=== PATIENT | female | born 1940 | race Caucasian/White ===

== ENCOUNTER 2019-01-26 18:12 | Inpatient (IN) | payer MEDICARE ==
--- OUTSIDE RECORDS SUMMARY | 2019-01-26 18:32 | XMS REPORT | Continuity of Care Document ---
:1940 External Reference #:[id number] Author Name Jaclyn Lopez NP Address [address] [facility] [place] [address] Care Team Providers Name Role Phone Eric Simpson Care Team Information Striper Unavailable Eric Smipson Primary Care Physician Unavailable Payers Date Identification Numbers Payment Provider Subscriber Effective: 2007 Policy Number: [id number] [place] Thelma E Thiago PayID: [id number] [address] [place] [address] Policy Number: [id number] [facility] Options Thelma Meghann Thiago PayID: [id number] [address] [place] [address] Effective: 2007 Policy Number: [id number] [place] Thelma Meghann Thiago Expires: 2018 PayID: [id number] [address] [place] [address] Problems Active Problems Provider Date Rosacea Eric Simpson M.D. 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 Onset: 04/17/2018 Mixed hyperlipidemia Eric Simpson M.D. Onset: 04/17/2018 Hyperlipidemia Eric Simpson M.D. Onset: 06/11/2017 Essential hypertension Eric Simpson M.D. Onset: 04/29/2017 Benign essential hypertension Eric Simpson M.D. Onset: 05/04/2014 Colostomy bag changed Eric Simpson M.D. Onset: 05/04/2014 Chronic obstructive lung disease Eric Simpson M.D. Onset: 05/04/2014 Family History Date Family Member(s) Observation Comments Father due to Heart Disease () Mother due to Heart Disease () Social History Type Date Description Comments Sex Unknown Marital Status Patient is Living Situation Lives with spouse Diet Diet is healthy and well balanced Tobacco Use Start: Unknown Nonsmoker Smoking Status Reviewed: 01/23/19 Nonsmoker ETOH Use Denies alcohol use Tobacco Use Start: Unknown End: Patient is a former smoker Unknown Exercise Type/Frequency Exercises sporadically Current Allergies, Adverse Reactions, Alerts Description No Known Drug Allergies Medications Active Medications SIG Qnty Indications Ordering Date Provider Lisinopril 1 by mouth every 30tabs I10 Jaclyn Irasema 01/23/2019 5mg Tablets day SABINO Lopez Metronidazole apply to 45units L71.8 Eric Simpson, 11/20/2018 0.75% Cream affected area(s) M.D. on face at bedtime Triamterene/Hydrochlor 1 by mouth every 90caps I10 Eric Simpson, 2016 othiazide day M.D. 37.5-25mg Capsules Garlic 1 po qd Unknown Capsules Cholestoff 2 po qd Unknown Capsules History Medications Zithromax 2 po qd today , 6Tabs Eric Simpson, 10/18/2008 - 250mg then 1 po qd M.D. 08/06/2009 Tablets times 4 Wrist Splint cock-up splint 1units Eric Simpson, 05/03/2008 - for wrist M.D. 10/18/2008 dx: carpal tunnel Naproxen 1 po bid for lt 40tabs Eric Simpson, 05/03/2008 - 375mg hand and wrist M.D. 10/18/2008 Tablets Medications Administered in Office Medication SIG Qnty Indications Ordering Provider Date H1N1 MDCR vaccine any route Eric Simpson M.D. 08/06/2009 Injection Immunizations CPT Code Status Date Vaccine Lot # [id number] Given 04/17/2018 High-Dose, Influenza Virus Vacccine-fluzone 65 [id number] and older 84502 Given 04/29/2017 High-Dose, Influenza Virus Vacccine-fluzone 65 [id number] and older 31404 Given 04/28/2016 High-Dose, Influenza Virus Vacccine-fluzone 65 [id number] and older 46721 Given 04/30/2015 High-Dose, Influenza Virus Vacccine-fluzone 65 [id number] and older 30611 Given 05/04/2014 High-Dose, Influenza Virus Vacccine-fluzone 65 [id number] and older Q2038 Given 04/11/2013 Split Influenza Medicare: Fluzone [id number] 62032 Given 04/19/2012 High-Dose, Influenza Virus Vacccine-fluzone 65 [id number] and older Q2038 Given 05/12/2011 Split Influenza Medicare: Fluzone [id number] 36368 Given 05/06/2010 DO Not Use Split Influenza Virus Vaccine [id number] 12983 Given 08/06/2009 DO Not Use Split Influenza Virus Vaccine [id number] 07939 Given 05/03/2008 DO Not Use Split Influenza Virus Vaccine [id number] 19004 Given 11/07/2007 Pneumococcal Immunization [id number] Vital Signs Date Vital Result Comment 01/23/2019 3:18pm BP Systolic 150 mmHg BP Diastolic 94 mmHg Heart Rate 76 /min Body Temperature 98.1 F Height 63.25 inches 5'3.25" measured 04/29/17 Weight 204.00 lb BMI (Body Mass Index) 35.8 kg/m2 11/20/2018 2:14pm BP Systolic 170 mmHg BP Diastolic 80 mmHg Heart Rate 78 /min Body Temperature 98.1 F Height 63.25 inches 5'3.25" measured 04/29/17 Weight 214.00 lb BMI (Body Mass Index) 37.6 kg/m2 04/17/2018 2:35pm BP Systolic 140 mmHg BP Diastolic 60 mmHg Heart Rate 72 /min Body Temperature 97.9 F Respiratory Rate 16 /min Height 63.25 inches 5'3.25" measured 04/29/17 Weight 226.25 lb BMI (Body Mass Index) 39.8 kg/m2 10/10/2017 9:54am BP Systolic 152 mmHg BP Diastolic 84 mmHg Heart Rate 72 /min Body Temperature 97.5 F Respiratory Rate 16 /min Height 63.25 inches 5'3.25" measured 04/29/17 Weight 226.25 lb BMI (Body Mass Index) 39.8 kg/m2 06/11/2017 11:02am BP Systolic 146 mmHg BP Diastolic 80 mmHg Heart Rate 78 /min Body Temperature 97.7 F Respiratory Rate 16 /min Height 63.25 inches 5'3.25" measured 04/29/17 Weight 231.38 lb BMI (Body Mass Index) 40.7 kg/m2 04/29/2017 1:59pm BP Systolic 177 mmHg BP Diastolic 88 mmHg Heart Rate 66 /min Body Temperature 96.8 F Respiratory Rate 16 /min Height 63.25 inches 5'3.25" measured 04/29/17 Weight 244.12 lb BMI (Body Mass Index) 42.9 kg/m2 05/04/2014 1:26pm BP Systolic 160 mmHg BP Diastolic 80 mmHg Heart Rate 76 /min Body Temperature 97.9 F Respiratory Rate 16 /min Height 63.5 inches 5'3.50" Weight 223.00 lb BMI (Body Mass Index) 38.9 kg/m2 10/18/2008 2:53pm BP Systolic 130 mmHg BP Diastolic 70 mmHg Heart Rate 88 /min Body Temperature 101.0 F Respiratory Rate 18 /min Weight 218.00 lb 05/03/2008 8:43pm BP Systolic 136 mmHg BP Diastolic 64 mmHg Heart Rate 66 /min Height 63.5 inches 5'3.50" Weight 204.00 lb BMI (Body Mass Index) 35.6 kg/m2 11/07/2007 1:31pm BP Systolic 138 mmHg BP Diastolic 72 mmHg Heart Rate 84 /min Body Temperature 97.9 F Height 63.5 inches 5'3.50" Weight 181.00 lb BMI (Body Mass Index) 31.6 kg/m2 Results Test Date Facility Test Result H/L Range Note Lipid Profile 10/10/2017 [facility]) Cholesterol 285 mg/dL High 120-200 Triglycerides 253 mg/dL High 30-200 HDL Cholesterol 51 mg/dL 30-85 LDL (Calculated) 183 CALC High 0-129 VLDL Cholesterol 51 mg/dL High 0-50 HDL Risk Factor 5.6 CALC High 0.0-4.4 CBC Electronic ([facility]) 04/29/2017 [facility] WBC 8.2 3.6-9.6 (607)- - RBC 4.50 3.90-5.70 Hemoglobin ([facility]/CMC/CTX) 13.9 g/dL 12.1 - 17.2 Hematocrit ([facility]/CMC/CTX) 41.3 % 36.1 - 50.3 Platelets 257 10^3/ul 150-400 Lymph% 20.5 % 17.0-48.0 Mixed% 5.7 Neutrophils % 73.8 Mean Corpuscular Vol 92 82.2-97.4 Mean Corpuscular Hemoglobin 30.9 27.6-33.3 Mean Corpuscular Hemo Concen 33.7 32.0-36.0 RDW 14.6 High 11.6-13.7 Mean Platelet Volume 6.4 5.5-11.0 Comprehensive Metabolic 04/29/2017 [facility]) Sodium 143 mEq/L 134-149 Prof Potassium 4.6 mEq/L 3.6-5.5 Chloride 109 mEq/L 94-112 Carbon Dioxide 28 mEq/L 21-32 Glucose 99 mg/dL 70-105 BUN 18 mg/dL 6-26 Creatinine 1.1 mg/dL 0.6-1.4 BUN/Creat Ratio 16.4 CALC 8.0-36.0 Calcium 9.4 mg/dL 8.6-10.2 Total Protein 7.8 g/dL 6.4-8.3 Albumin 4.5 g/dL 3.8-5.5 Globulin 3.3 g/dL 2.0-4.8 A/G Ratio 1.4 CALC 0.6-2.3 Alk. Phosphatase 65 U/L 30-110 Alt (SGPT) 17 U/L 7-35 Ast (Sgot) 15 U/L 5-34 Total Bilirubin 0.9 mg/dL 0.2-1.3 GFR Non- 52 ml/min/1.73m^ Low >=60 GFR >60 ml/min/1.73m^ >=60 Lipid Profile 04/29/2017 [facility](a) Cholesterol 278 mg/dL High 120-200 Triglycerides 174 mg/dL 30-200 HDL Cholesterol 54 mg/dL 30-85 LDL (Calculated) 189 CALC High 0-129 VLDL Cholesterol 35 mg/dL 0-50 HDL Risk Factor 5.1 CALC High 0.0-4.4 Comprehensive Metabolic 05/04/2014 [facility]) Sodium 138 mEq/L 134-149 Prof Potassium 4.4 mEq/L 3.6-5.5 Chloride 101 mEq/L 94-112 Carbon Dioxide 28 mEq/L 21-32 Glucose 103 mg/dL 70-105 BUN 16 mg/dL 6-26 Creatinine 1.0 mg/dL 0.6-1.4 BUN/Creat Ratio 16.0 CALC 8.0-36.0 Calcium 10.0 mg/dL 8.6-10.2 Total Protein 8.0 g/dL 6.4-8.3 Albumin 4.3 g/dL 3.8-5.5 Globulin 3.7 g/dL 2.0-4.8 A/G Ratio 1.2 CALC 0.6-2.3 Alk. Phosphatase 70 U/L 30-110 Alt (SGPT) 22 U/L 7-35 Ast (Sgot) 21 U/L 5-34 Total Bilirubin 0.8 mg/dL 0.2-1.3 CBC Electronic ([facility]) 05/04/2014 [facility] WBC 7.1 3.6-9.6 (607)- - RBC 3.99 3.90-5.70 Hemoglobin ([facility]ma/CMC/CTX) 12.8 g/dL 12.1 - 17.2 Hematocrit (Fma/CMC/CTX) 36.4 % 36.1 - 50.3 Platelets 253 10^3/ul 150-400 Lymph% 21.3 % 17.0-48.0 Mixed% 5.5 Neutrophils % 73.2 Mean Corpuscular Vol 91 82.2-97.4 Mean Corpuscular Hemoglobin 31.9 27.6-33.3 Mean Corpuscular Hemo Concen 35.0 32.0-36.0 RDW 15.3 High 11.6-13.7 Mean Platelet Volume 6.7 5.5-11.0 Encounters Type Date Location Provider Dx Diagnosis Office Visit 11/20/2018 [facility] Office Dustin Blackwood Essential ( primary) 2:00p MEmperatrizDEmperatriz hypertension E78.2 Mixed hyperlipidemia L71.8 Other rosacea Office Visit 04/17/2018 2:40p [facility] Office Eric Chan Essential ( primary) Kely Simpson hypertension E78.2 Mixed hyperlipidemia D48.5 Neoplasm of uncertain behavior of skin Z23 Encounter for immunization Office Visit 10/10/2017 10:00a [facility] Office Eric Chan Essential ( primary) Kely Simpson hypertension E78.4 Other hyperlipidemia Office Visit 06/11/2017 11:00a Main Office Dustin Blackwood ( primary) Kely hypertension E78.4 Other hyperlipidemia Office Visit 10/18/2008 2:50p Main Office Eric Simpson, 465.9 URI Upper M.D. Respiratory Infections Acute Unspec Sites 462 Pharyngitis Acute Office Visit 05/03/2008 8:10p Main Office Eric Simpson, 782.0 Skin Sensation M.D. Disturbance 354.0 Carpal Tunnel Syndrome V04.81 Need For Prophylactic Vaccination & Inoculation/Influenza Office Visit 11/07/2007 1:20p Main Office Eric Simpson, 496 COPD Airway M.D. Obstruction Chronic Not Class Elsewhere V03.82 Streptococcus Pneumoniae Vaccination Spec Other Plan of Treatment Future Appointment(s):04/23/2019 10:20 am - Eric Simpson M.D. at [facility] Avgyqq4601/23/2019 - Jaclyn Lopez, NPI10 Essential (primary) hypertensionNew Medication:Lisinopril 5 mg - 1 by mouth every dayComments: Supportive Care:- Elevate legs- Increase protein in diet- Take frequent breaks while on your feet - Compression stockings ED Precautions reviewed ssure is less than 140/80. Recommend low salt/cardiac diet and routine exercise.R60.0 Localized edemaComments:Supportive Care:- Elevate legs- Increase protein in diet - Take frequent breaks while on your feet -Compression stockings ED Precautions reviewedAllComments:Medication Management Patient Understands medications he 's taking? Yes No Are there Barriers to Adherence? Yes No Has the patient been asked about herbal supplements and therapies, andOTC meds? Yes No Care Plan1. Patient has been queried about patient's goals/preferences and functional/lifestyle goals at relevant visits. If relevant, describe: na2. Treatment goals as explained to the patient: above3. Are there barriers to meeting treatment goals? Yes No If Yes, please describe:4. Self-Management goals as described to the patient: Yes NoAs always, we strongly encourage a healthy diet and making physical activity a part of your every day life. If you have questions about how or where to start , please contact the office.
[2019-01-26 19:17] LABS: ABS Eosinophils 0.1 10^3/ul (0-0.6); ABS Lymphocytes 0.4 10^3/ul (1.0-4.8); ABS Monocytes 0.7 10^3/ul (0-0.8); ABS Neutrophils 8.6 10^3/ul (1.5-7.7); Eosinophil % 1.1 %; Hematocrit 30 % (35-47); Lymphocyte % 4.5 %; Mean Corpuscular HGB Conc 34 g/dL (31-36); Mean Corpuscular Hemoglobin 29 pg (27-31); Mean Corpuscular Volume 84 fL (80-97); Mean Platelet Volume 6.2 fL (7.4-10.4); Nucleated Red Blood Cells % 0.1; Platelet Count 358 10^3/uL (150-450); Red Blood Count 3.51 10^6 /uL (3.70-4.87); Red Cell Distribution Width 14 % (10-15); White Blood Count 9.8 10^3/uL (3.5-10.8)
[2019-01-26 19:35] LABS: Albumin 4.1 g/dL (3.2-5.2); BUN/Creatinine Ratio 6.7 (8-20); C Reactive Protein 22.43 mg/L (<8.01); Calcium 9.9 mg/dL (8.6-10.3); EGFR African American 10.8 (>60); EGFR Non-African American 8.9 (>60); Globulin 4.1 g/dL (2-4); Potassium 4.6 mmol/L (3.5-5.0); Total Bilirubin 0.9 mg/dL (0.2-1.0); Total Protein 8.2 g/dL (6.4-8.9)
[2019-01-26] MEDS ORDERED: NS 0.9% 1000 ML** 1,000 ML IV ONE (20:30)
--- NOTE | 2019-01-26 21:31 | ED ---
Abdominal Pain/Female - HPI Summary HPI Summary: This patient is a 78 year old F presenting to [facility] accompanied by her with a chief complaint of worsening ABD pain since 2 days ago. Pt states that eating does not affect the ABD pain. She went to her PCP 4 hours ago for blood work. 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 Pt had a colostomy bag placed 20 years ago and has chronic diarrhea. The pt rates the pain 5/10 in severity. Symptoms aggravated by nothing. Symptoms alleviated by nothing. Pt reports nausea, normal urination. Pt states she had a negative reaction to Lisinopril use. - History of Current Complaint Chief Complaint: EDAbdPain Stated Complaint: ABD PAIN PER PT Time Seen by Provider: 01/26/19 20:21 Hx Obtained From: Patient, Family/Weblogic Administrator - ?: No Onset/Duration: Sudden Onset, Lasting Days - 2, Still Present, Resolved Timing: Constant - 2 Severity Initially: Moderate Severity Currently: Moderate Pain Intensity: 5 Pain Scale Used: 0-10 Numeric Radiates: No Aggravating Factor(s): Nothing Alleviating Factor(s): Nothing Associated Signs and Symptoms: Positive: Nausea, Diarrhea - chronic diarrhea, Other: - positive - normal urination Allergies/Adverse Reactions: Allergies Allergy/AdvReac Type Severity Reaction Status Date / Time lisinopril Allergy See Comment Verified 01/26/19 18:24 PMH/Surg Hx/FS Hx/Imm Hx Previously Healthy: No Sensory History: Denies: Hx Glaucoma Opthamlomology History: Denies: Hx Legally Blind EENT History: Denies: Hx Deafness, Hx Auditory Problems - Surgical History Surgical History: Yes Surgery Procedure, Year, and Place: colostomy bag placement - Immunization History Immunizations Up to Date: Yes Infectious Disease History: No Infectious Disease History: Denies: Traveled Outside the [place] in Last 30 Days - Family History Known Family History: Positive: Unknown - Social History Alcohol Use: None Hx Substance Use: No Substance Use Type: Reports: None Hx Tobacco Use: No Smoking Status (MU): Never Smoked Tobacco Do You Chew or Dip Tobacco: No Have You Chewed or Dipped Tobacco in the LAST YEAR: No Have You Smoked in the Last Year: No Review of Systems Positive: Abdominal Pain, Diarrhea - chronic, Nausea Genitourinary: Other - positive - normal urination All Other Systems Reviewed And Are Negative: Yes Physical Exam - Summary Physical Exam Summary: Appearance: The patient is well-nourished in no acute distress and in no acute pain. Skin: The skin is warm and dry and skin color reflects adequate perfusion. HEENT: The head is normocephalic and atraumatic. The pupils are equal and reactive. The conjunctivae are clear and without drainage. Nares are patent and without drainage. Mouth reveals moist mucous membranes and the throat is without erythema and exudate. The external ears are intact. The ear canals are patent and without drainage. The tympanic membranes are intact. Neck: The neck is supple with full range of motion and non-tender. There are no carotid bruits. There is no neck vein distension. Respiratory: Chest is non-tender. Lungs are clear to auscultation and breath sounds are symmetrical and equal. Cardiovascular: Heart is regular rate and rhythm. There is no murmur or rub auscultated. There is no peripheral edema and pulses are symmetrical and equal. Abdomen: The abdomen is soft and tender. There are normal bowel sounds heard in all four quadrants and there is no organomegaly palpated. Musculoskeletal: There is no back tenderness noted. Extremities are non-tender with full range of motion. There is good capillary refill. There is no peripheral edema or calf tenderness elicited. Neurological: Patient is alert and oriented to person, place and time. The patient has symmetrical motor strength in all four extremities. Cranial nerves are grossly intact. Deep tendon reflexes are symmetrical and equal in all four extremities. Psychiatric: The patient has an appropriate affect and does not exhibit any anxiety or depression. Triage Information Reviewed: Yes Vital Signs On Initial Exam: Initial Vitals Temp Pulse Resp BP Pulse Ox 97.7 F 76 18 188/67 97 01/26/19 18:19 01/26/19 18:19 01/26/19 18:19 01/26/19 18:19 01/26/19 18:19 Vital Signs Reviewed: Yes Diagnostics - Vital Signs Vital Signs Temp Pulse Resp BP Pulse Ox 01/26/19 20:49 69 210/86 98 01/26/19 20:18 68 188/82 98 01/26/19 20:16 70 189/83 98 01/26/19 20:15 68 97 01/26/19 18:19 97.7 F 76 18 188/67 97 - Laboratory Lab Results: Lab Results 01/26/19 01/26/19 01/26/19 Range/Units 19:08 19:08 19:08 WBC 9.8 (3.5-10.8) 10^3/uL RBC 3.51 L (3.70-4.87) 10^6 /uL Hgb 10.0 L (12.0-16.0) g/dL Hct 30 L (35-47) % MCV 84 (80-97) fL MCH 29 (27-31) pg MCHC 34 (31-36) g/dL RDW 14 (10-15) % Plt Count 358 (150-450) 10^3/uL MPV 6.2 L (7.4-10.4) fL Neut % (Auto) 87.2 % Lymph % (Auto) 4.5 % [place] % (Auto) 6.9 % Eos % (Auto) 1.1 % Baso % (Auto) 0.3 % Absolute Neuts (auto) 8.6 H (1.5-7.7) 10^3/ul Absolute Lymphs (auto) 0.4 L (1.0-4.8) 10^3/ul Absolute Monos (auto) 0.7 (0-0.8) 10^3/ul Absolute Eos (auto) 0.1 (0-0.6) 10^3/ul Absolute Basos (auto) 0.0 (0-0.2) 10^3/ul Absolute Nucleated RBC 0.0 10^3/ul Nucleated RBC % 0.1 Sodium 119 L* (135-145) mmol/L Potassium 4.6 (3.5-5.0) mmol/L Chloride 85 L (101-111) mmol/L Carbon Dioxide 21 L (22-32) mmol/L Anion Gap 13 H (2-11) mmol/L BUN 32 H (6-24) mg/dL Creatinine 4.76 H (0.51-0.95) mg/dL Est GFR ( Amer) 10.8 (>60) Est GFR (Non-Af Amer) 8.9 (>60) BUN/Creatinine Ratio 6.7 L (8-20) Glucose 122 H (70-100) mg/dL Lactic Acid 1.2 (0.5-2.0) mmol/L Calcium 9.9 (8.6-10.3) mg/dL Total Bilirubin 0.90 (0.2-1.0) mg/dL AST 8 L (13-39) U/L ALT 9 (7-52) U/L Alkaline Phosphatase 80 (34-104) U/L C-Reactive Protein 22.43 H (<8.01) mg/L Total Protein 8.2 (6.4-8.9) g/dL Albumin 4.1 (3.2-5.2) g/dL Globulin 4.1 H (2-4) g/dL Albumin/Globulin Ratio 1.0 (1-3) Lipase 23 (11.0-82.0) U/L Result Diagrams: 01/26/19 19:08 01/26/19 19:08 Lab Statement: Any lab studies that have been ordered have been reviewed, and results considered in the medical decision making process. Abdominal Pain Fem Course/Dx - Course Course Of Treatment: Ms. Das was found to be quite hyponatremic with mild renal insufficiency. I have no old labs to compare to. She is not a very good historian. She is nontoxic in appearance and her vitals are stable. I spoke with Dr. Guadalupe who recommended admission here and he would consult. I spoke with Dr. Rodriguez who accepted the patient. - Diagnoses Provider Diagnoses: Hyponatremia, ARF (acute renal failure) - Provider Notifications Discussed Care Of Patient With: Nahum Rodriguez Time Discussed With Above Provider: 20:44 Instructed by Provider To: Other - Dr. Sharma discusses pt's case with Dr. Rodriguez , hospitalist, who tells Dr. Sharma to consult with Dr. Guadalupe. Dr. Guadalupe agrees to admit pt. - Critical Care Time Critical Care Time: 30-74 min Discharge - Sign-Out/Discharge Documenting (check all that apply): Patient Departure Patient Received Moderate/Deep Sedation with Procedure: No - Discharge Plan Condition: Stable Disposition: ADMITTED TO [facility] Referrals: Eric Simpson MD [Primary Care Provider] - - Billing Disposition and Condition Condition: STABLE Disposition: Admitted to [facility] - Attestation Statements Document Initiated by Scribe: Yes Documenting Scribe: Farzad West Provider For Whom Scribe is Documenting (Include Credential): Dr. Tommie Sharma MD Scribe Attestation: IFarzad, scribed for Dr. Tommie Sharma MD on 01/26/19 at 2155. Scribe Documentation Reviewed: Yes Provider Attestation: The documentation as recorded by the annaibe, Farzad West accurately reflects the service I personally performed and the decisions made by me, Dr. Tommie Sharma MD Status of Scribe Document: Viewed
[2019-01-26 22:54] LABS: Urine Appearance Clear; Urine Bacteria 1+ (Absent); Urine Bilirubin Negative (Negative); Urine Blood 1+ (Negative); Urine Color Straw; Urine Glucose Negative (Negative); Urine Ketones Negative (Negative); Urine Nitrite Negative (Negative); Urine Protein Negative (Negative); Urine Red Blood Cell Trace(0-2/hpf) (Absent); Urine Specific Gravity 1.004 (1.010-1.030); Urine Squamous Epithelial Cell Present (Absent); Urine Urobilinogen Negative (Negative); Urine White Blood Cell Trace(0-5/hpf) (Absent)
[2019-01-26] MEDS ORDERED: Acetaminophen TAB* 325 MG PO PRN (23:40)
[2019-01-26] MEDS ORDERED: hydrALAZINE IV* 20 MG/ML VIAL IV SLOW PU PRN (23:51)
[2019-01-26] MEDS ORDERED: Ondansetron INJ* 2 MG/ML VIAL ONE (23:52)
[2019-01-27 00:05] LABS: BUN/Creatinine Ratio 6.6 (8-20); Blood Urea Nitrogen 30 mg/dL (6-24); CO2 Carbon Dioxide 20 mmol/L (22-32); Calcium 9.3 mg/dL (8.6-10.3); Chloride 88 mmol/L (101-111); EGFR African American 11.4 (>60); EGFR Non-African American 9.4 (>60); Glucose 110 mg/dL (70-100); Potassium 3.9 mmol/L (3.5-5.0)
[2019-01-27] MEDS: Ondansetron INJ* 2 MG/ML VIAL IV PRN ×3 (00:05→15:57)
[2019-01-27 00:15] LABS: Anion Gap 11 mmol/L (2-11); Sodium 119 mmol/L (135-145)
[2019-01-27 00:20] LABS: % Iron Saturation 11 % (15-55); Iron 49 ug/dL (50-212); Total Iron Binding Capacity 441 mcg/dL (250-450); Transferrin 315 mg/dL (203-362)
[2019-01-27 00:27] LABS: Activated Partial Thrombo Time 32.8 seconds (26.0-38.0); INR 0.94 (0.82-1.09)
[2019-01-27 00:42] LABS: Ferritin 24.2 ng/mL (11-307)
[2019-01-27 00:45] LABS: Folate 9.82 ng/mL (>3.99)
[2019-01-27] MEDS ORDERED: cloNIDine 0.3 MG PATCH* 0.3 MG/24 HR 7 DAY PATCH TRANSDERM SCH (02:00)
[2019-01-27] MEDS: NS 0.9% 1000 ML** 1,000 ML IV SCH ×2 (02:06→13:25)
[2019-01-27] MEDS: Ferric Gluconate IV* 125 MG in NS 0.9% 100 ML* 100 ML IVPB SCH ×2 (02:18→10:04)
[2019-01-27] MEDS ORDERED: Ferric Gluconate IV* 125 MG in NS 0.9% 100 ML* 100 ML IVPB SCH (02:30)
--- NOTE | 2019-01-27 02:48 | HP ---
CC: Dr. Eric Simpson; Dr. González Guadalupe * ADMISSION HISTORY AND PHYSICAL: DATE OF ADMISSION: 01/26/19 PRIMARY CARE PHYSICIAN: Dr. Eric Simpson. CHIEF COMPLAINT: Abdominal pain. HISTORY OF PRESENT ILLNESS: This is a 78-year-old female with past medical history of hypertension and extensive surgical history including a hysterectomy , cholecystectomy, appendectomy and had perforated diverticulitis with intraabdominal abscess in 2007, status post laparotomy with sigmoid colectomy and end colostomy, was brought into the ER due to abdominal pain. The patient is a very vague historian, stated initially that the pain started as abdominal pain which was localized, diffuse, started today, but after further questioning , it was revealed that she had been having this for over 3 weeks, has had decreased appetite. Today, the only new symptom was she had 3 episodes of recurrent vomiting and has seen her primary care physician who ordered some labs , and on reevaluation of the labs and the patient's recurrent abdominal pain, the primary care provider Dr. Simpson suggested that the patient should go to the ER for further evaluation. We currently do not have the lab results, but the patient otherwise denies any chest pain or shortness of breath. Does state that she has not been eating well for the last month as she had decreased appetite. She has been feeling dizzy. No other sick contacts. No fever or chills. The patient was complaining of left leg swelling which she does have on and off for the last 11 years, had some imaging done 2 days ago which did not show any fracture. PAST MEDICAL HISTORY: As mentioned, high blood pressure. She was chronically on triamterene and hydrochlorothiazide, which she has been taking consistently throughout the last week, even though she was not eating that much and she has been compliant with low-salt diet and almost does not have any salt in her diet. She was given an extra medication lisinopril which caused her to have severe reaction. So this was discontinued, this was done on Saturday. PAST SURGICAL HISTORY: As mentioned hysterectomy, cholecystectomy, appendectomy , diverticulitis with perforation, and intraabdominal abscess in October 2007, status post laparotomy and sigmoid colectomy and colostomy. MEDICATIONS: Home medication: The patient currently only takes triamterene/ hydrochlorothiazide 37.5/25 mg oral daily and topical metronidazole cream. ALLERGIES: The patient is allergic to LISINOPRIL as mentioned. FAMILY HISTORY: Noncontributory at her age. SOCIAL HISTORY: The patient used to have 7-uxpc-aui-day smoking for 30 years, quit 12 years ago. Denies any other alcohol or drug use. She is retired and is full code status. REVIEW OF SYSTEMS: A 14-point review of systems did not reveal any new information other than the ones in the HPI with the exception of she does have an 11-year- history of left leg swelling. This was postoperatively after she had the colostomy done. PHYSICAL EXAMINATION GENERAL: The patient is awake, alert, and oriented. She did not appear to be in any acute respiratory distress. VITAL SIGNS: Temperature was documented as 97.7, BP 183/72, heart rate 67, saturating 98% on room air, respiratory rate 14. HEAD AND NECK: Atraumatic, normocephalic. Bilateral pupils are reactive. Oral mucosa was moist. Neck supple. No jugular venous distention. LUNGS: Clear to auscultation bilaterally. No wheezes, rhonchi, or rales. HEART: S1 and S2. Systolic murmur heard. ABDOMEN: Distended with midline hernia and colostomy in place. The patient had minimal tenderness on the right lower quadrant, but no rebound tenderness was noted. EXTREMITIES: The patient did have left pedal edema which was pitting in nature , but no tenderness or erythema. LABORATORY DATA: CBC shows normal white count. Hemoglobin and hematocrit show mild anemia with hemoglobin of 10.0, hematocrit of 30. Platelet count was within normal limits at 358. Comprehensive metabolic panel shows decreased sodium at 119, chloride noted to be decreased at 85, bicarb decreased at 21. BUN elevated at 32, creatinine elevated at 4.72. Random glucose was noted to be 122. AST and ALT were within normal limits. Albumin was noted to be 4.1. Urine was 1+ leuk esterase positive, negative for any nitrite. There was 1+ blood noted as well. IMPRESSION: This is a 78-year-old female with hypertension and extensive abdominal surgical histories and colostomy here due to vague abdominal pain, noted to have multiple lab abnormalities including anemia, hyponatremia, anion gap, metabolic acidosis, and acute kidney injury. ASSESSMENT: 1. Acute kidney injury likely secondary to dehydration and decreased p.o. intake from her abdominal pain. 2. Hyponatremia due to her low-salt diet, exacerbated by her diuretic use and decreased p.o. intake. 3. Anemia, unclear etiology, could be just nutritional deficiencies. 4. Anion gap metabolic acidosis likely due to uremic metabolic acidosis from her acute kidney injury. 5. History of hypertension with elevated BP at this point, uncontrolled elevated BP. 6. History of multiple abdominal surgeries and abdominal pain. 7. Left foot swelling. PLAN/RECOMMENDATIONS: 1. Regarding her abdominal pain, we will get a CT abdomen and pelvis, would have preferred oral or IV contrast; however, given her acute kidney injury and her nausea, we would just attempt to do a noncontrast CT at this point to rule out any obstruction. We will keep the patient n.p.o. for now and advance diet once her vomiting and abdominal pain subsides. 2. For the severe hyponatremia and acute kidney injury and other electrolyte abnormalities, we will get serum osmolality and serial sodium levels with the goal of correcting sodium at a rate of less than 0.5 mEq per hour and consult Nephrology to evaluate the patient. Dr. Guadalupe was already consulted by the ER physician who agreed to see the patient in the morning. 3. Regarding the anemia, we will get the anemia workup started with iron TIBC, stool occult. 4. We will get a venous Doppler of the left side given the intermittent swelling on the left lower extremity. 5. DVT prophylaxis: We will only perform encouraging ambulation for now as SCD is contraindicated if we suspect any DVT given the left leg swelling, and anticoagulation with heparin or Lovenox will be contraindicated in light of her anemia which is unclear if it is acute or chronic. 6. Regarding her blood pressure, as the patient will be n.p.o., we will start the patient on IV hydralazine and clonidine patch for now and consider switching over to other oral medications once her nausea resolved and she is tolerating p.o. [id number]/[facility] #: [id number] [facility] CENTERBhavin
[2019-01-27 03:31] LABS: BUN/Creatinine Ratio 6.9 (8-20); Calcium 9.6 mg/dL (8.6-10.3); EGFR African American 11.6 (>60); EGFR Non-African American 9.6 (>60); Potassium 3.6 mmol/L (3.5-5.0)
[2019-01-27 07:02] LABS: ABS Eosinophils 0.1 10^3/ul (0-0.6); ABS Lymphocytes 0.6 10^3/ul (1.0-4.8); ABS Monocytes 0.7 10^3/ul (0-0.8); ABS Neutrophils 7.7 10^3/ul (1.5-7.7); Eosinophil % 1.5 %; Hematocrit 28 % (35-47); Hemoglobin 9.4 g/dL (12.0-16.0); Lymphocyte % 6.8 %; Mean Corpuscular HGB Conc 33 g/dL (31-36); Mean Corpuscular Hemoglobin 28 pg (27-31); Mean Corpuscular Volume 85 fL (80-97); Mean Platelet Volume 6.6 fL (7.4-10.4); Platelet Count 325 10^3/uL (150-450); Red Blood Count 3.34 10^6 /uL (3.70-4.87); Red Cell Distribution Width 15 % (10-15); White Blood Count 9.2 10^3/uL (3.5-10.8)
[2019-01-27 07:20] LABS: ALT 8 U/L (7-52); AST 8 U/L (13-39); Albumin 3.5 g/dL (3.2-5.2); Alkaline Phosphatase 70 U/L (34-104); Globulin 3.5 g/dL (2-4)
[2019-01-27 07:22] LABS: BUN/Creatinine Ratio 6.9 (8-20); Calcium 9.1 mg/dL (8.6-10.3); EGFR African American 11.6 (>60); EGFR Non-African American 9.6 (>60); Potassium 3.6 mmol/L (3.5-5.0)
[2019-01-27] MEDS ORDERED: HYDROmorphone INJ1* 1 MG/ML SYRINGE IV SLOW PU PRN (15:39)
[2019-01-27 15:43] LABS: Urine Potassium Concentration 28.3 mmol/L
--- NOTE | 2019-01-27 16:45 | PN ---
Subjective Date of Service: 01/27/19 Interval History: Ms. Das is feeling better today. She still has some abdominal pain, but it is improved. No N/V. Has been able to tolerate full liquids. Denies CP, SOB. She thinks she had blood work recently through her PCP. No concerns from nursing. Family History: Unchanged from Admission Social History: Unchanged from Admission Past Medical History: Unchanged from Admission Objective Active Medications: Acetaminophen (Tylenol Tab*) 650 mg PO Q4H PRN FEVER/PAIN Clonidine HCl (Dhdblgxt-Ojq-1 0.3 Mg Patch*) 0.3 mg TRANSDERM Q7D VIKI Hydralazine HCl (Apresoline Iv*) 5 mg IV SLOW PU Q6H PRN Systolic Bp Greater Than:160 Hydromorphone HCl (Dilaudid Inj1s*) 0.5 mg IV SLOW PU Q6H PRN Pain 7-10/10 Sodium Chloride (Ns 0.9% 1000 Ml) 1,000 mls @ 100 mls/hr IV PER RATE VIKI Ferric Sodium Gluconate Complex 125 mg/ Sodium Chloride 110 mls @ 110 mls/hr IVPB DAILY@1000 VIKI Ondansetron HCl (Zofran Inj*) 4 mg IV Q4H PRN NAUSEA/VOMITING Vital Signs - 8 hr 01/27/19 01/27/19 15:45 15:57 Temperature 97.6 F Pulse Rate 63 Respiratory 20 18 Rate Blood Pressure 155/57 (mmHg) O2 Sat by Pulse 97 Oximetry Oxygen Devices in Use Now: None Appearance: Elderly female sitting in bed in NAD Eyes: No Scleral Icterus Ears/Nose/Mouth/Throat: Mucous Membranes Moist Neck: NL Appearance and Movements; NL JVP, Trachea Midline Respiratory: Symmetrical Chest Expansion and Respiratory Effort, Clear to Auscultation Cardiovascular: NL Sounds; No Murmurs; No JVD, RRR Abdominal: - - Normoactive BS, diffusely tender Extremities: No Edema Neurological: Alert and Oriented x 3 Lines/Tubes/Other Access: Clean, Dry and Intact Peripheral IV Nutrition: Taking PO's Result Diagrams: 01/27/19 05:50 01/27/19 05:50 Assess/Plan/Problems-Billing Assessment: Ms. Das is a 78 yo F with PMH of HTN and perforated diverticulitis s/p colostomy; who presented to the ED with c/o abdominal pain and was found to have GIAN and hyponatremia. - Patient Problems (1) GIAN (acute kidney injury) Code(s): N17.9 - ACUTE KIDNEY FAILURE, UNSPECIFIED Comment: - Unclear etiology - Baseline creatinine is unknown; awaiting records from PCP - Appreciate Nephrology consult; Dr. Guadalupe agrees with current management - Continue IVF (2) Hyponatremia Code(s): E87.1 - HYPO-OSMOLALITY AND HYPONATREMIA Comment: - Improving - At least in part d/t HCTZ - Continue IVF (3) Abdominal pain Code(s): R10.9 - UNSPECIFIED ABDOMINAL PAIN Comment: - Improved this morning, but worsening again this afternoon - CT unremarkable - Start hydromorphone (4) Anemia Code(s): D64.9 - ANEMIA, UNSPECIFIED Comment: - Iron deficiency, but question if there is also a component of chronic disease if there is undiagnosed CKD - Continue ferric gluconate (5) Hypertension Code(s): I10 - ESSENTIAL (PRIMARY) HYPERTENSION Comment: - Slightly hypertensive - Start amlodipine; d/c clonidine patch as she is tolerating PO (6) Colostomy present Code(s): Z93.3 - COLOSTOMY STATUS Comment: - Adequate output (7) DVT prophylaxis Code(s): Z29.9 - ENCOUNTER FOR PROPHYLACTIC MEASURES, UNSPECIFIED Comment: - SCDs (8) Full code status Code(s): Z78.9 - OTHER SPECIFIED HEALTH STATUS Comment: Status and Disposition: Inpatient. Anticipate d/c home when medically stable. Attending: Kathia Gonsalez
[2019-01-27 17:14] LABS: Urine Creatinine Concentration 96.99 mg/dL
[2019-01-28] MEDS: NS 0.9% 1000 ML** 1,000 ML IV SCH (01:02)
[2019-01-28 08:26] LABS: ABS Eosinophils 0.1 10^3/ul (0-0.6); ABS Lymphocytes 0.5 10^3/ul (1.0-4.8); ABS Monocytes 0.8 10^3/ul (0-0.8); Eosinophil % 1.5 %; Hematocrit 28 % (35-47); Hemoglobin 9.3 g/dL (12.0-16.0); Lymphocyte % 5.7 %; Mean Corpuscular HGB Conc 34 g/dL (31-36); Mean Corpuscular Hemoglobin 29 pg (27-31); Mean Corpuscular Volume 86 fL (80-97); Mean Platelet Volume 6.3 fL (7.4-10.4); Platelet Count 297 10^3/uL (150-450); Red Cell Distribution Width 15 % (10-15); White Blood Count 9.6 10^3/uL (3.5-10.8)
[2019-01-28 08:45] LABS: BUN/Creatinine Ratio 6.9 (8-20); Calcium 8.8 mg/dL (8.6-10.3); EGFR African American 10.7 (>60); EGFR Non-African American 8.9 (>60); Potassium 3.3 mmol/L (3.5-5.0)
[2019-01-28] MEDS: amLODIPine TAB* 5 MG PO SCH (09:09)
--- NOTE | 2019-01-28 09:35 | CONS ---
NEPHROLOGY CONSULTATION: DATE OF CONSULT: I saw Ms. Das on 01/27/19. HISTORY OF PRESENT ILLNESS: Ms. Das is a 78-year-old female with history of hypertension. She also has a history of an abdominal abscess in 2007 and is status post laparotomy with a sigmoid colectomy and colostomy. She is very groggy and therefore, most of the history was taken from the and the medical record. She apparently has been having a decrease in her appetite over the past 2 to 3 weeks. She has not been taking much in the way of food or fluids. Her ostomy output has not changed. She has had no significant change in her urine output either. She has been having some mid epigastric abdominal pain, which she does not characterize well. She was seen by her primary care doctor, Dr. Simpson. Some laboratory evaluation was performed and it revealed that she had an acute renal injury and she was referred to the emergency room. PAST MEDICAL HISTORY: Her previous medical history is significant for hypertension and she has been on triamterene/hydrochlorothiazide for a number of years. Apparently, there was a trial of lisinopril, which caused a severe reaction and was recently discontinued. She is status post a hysterectomy, colectomy, and an appendectomy. She has a history of diverticulitis with perforation. She is status post a laparotomy with sigmoid colectomy and colostomy. SOCIAL HISTORY: She quit smoking 12 years ago. She does not use any alcohol. REVIEW OF SYSTEMS: It was difficult to collect a review of systems. There have been no visual disturbances. She has had a problem with swallowing recently. She says that her mouth does not hurt but she just cannot swallow. PHYSICAL EXAM: She is a groggy but responsive white female. She denies discomfort at this time. Her blood pressure is 156/66 with pulse of 56, respirations were 18. She is afebrile. She had positive skin tenting. There were dry mucous membranes. I could not see her neck veins. The chest was clear. The heart revealed a regular rhythm without murmurs. The abdomen was soft. She was tender to the mid epigastrium without rebound. Bowel sounds were positive. Bones, joints, extremities revealed no cyanosis or clubbing. There was trace edema. DIAGNOSTIC STUDIES/LAB DATA: Review of her laboratory studies reveals a white count of 9.2, hemoglobin of 9.4, hematocrit of 28,000. Sodium 122, potassium 3.6, chloride 90, total CO2 of 19, BUN 31, creatinine 4.47. She has evidence of iron deficiency with an iron saturation of 11%, although her ferritin is in the normal range at 24. Her urinalysis revealed a specific gravity of 1.004 with 1+ blood, 1+ leukocyte esterase with 1+ bacteria. There are only a trace of wbc's seen. IMPRESSION AND PLAN: 1. Acute renal injury. This is probably on a multifactorial basis. She has been taking some ibuprofen in the recent past. In addition, she appears to be somewhat dehydrated and she has had decreased fluid intake at the same time that she has been taking her diuretic medications and had no change in her ostomy output. 2. Hyponatremia, which is on essentially the same basis. At the present time, I would continue somewhat vigorous fluid resuscitation. I think the abdominal pain should be independently investigated and I would recommend a CT scan of the abdomen with oral contrast only. I did discuss the case at length with Sharri Mccoy. [id number]/[facility] #: [id number] ZULY
[2019-01-28] MEDS: Ferric Gluconate IV* 125 MG in NS 0.9% 100 ML* 100 ML IVPB SCH (10:48)
[2019-01-28] MEDS ORDERED: Lactated Ringers 1000 ML Bag* 1,000 ML IV SCH (12:00)
[2019-01-28] MEDS: KCL 20 MEQ/100 ML IVPREMIX* 20 MEQ/100 ML BAG IV SCH ×2 (14:42→17:05)
[2019-01-28 15:57] LABS: BUN/Creatinine Ratio 7.1 (8-20); EGFR Non-African American 9.1 (>60); Potassium 3.8 mmol/L (3.5-5.0)
--- NOTE | 2019-01-28 16:33 | PN ---
Subjective Date of Service: 01/28/19 Interval History: Patient's abdominal pain has improved greatly and she now has an appetite. Patient denies F/C, N/V, abdominal pain, diarrhea, CP, SOB, or other pain. Patient voices frustration with her diet and prolonged hospital stay. Family History: Unchanged from Admission Social History: Unchanged from Admission Past Medical History: Unchanged from Admission Objective Active Medications: Acetaminophen (Tylenol Tab*) 650 mg PO Q4H PRN PRN Reason: FEVER/PAIN Last Admin: 01/27/19 00:53 Dose: 650 mg Amlodipine Besylate (Norvasc Tab*) 5 mg PO DAILY [facility] Last Admin: 01/28/19 09:09 Dose: 5 mg Hydralazine HCl (Apresoline Iv*) 5 mg IV SLOW PU Q6H PRN PRN Reason: Systolic Bp Greater Than:160 Hydromorphone HCl (Dilaudid Inj1s*) 0.5 mg IV SLOW PU Q6H PRN PRN Reason: Pain 7-04/16 Last Admin: 01/27/19 15:57 Dose: 0.5 mg Ferric Sodium Gluconate Complex 125 mg/ Sodium Chloride 110 mls @ 110 mls/hr IVPB DAILY@1000 [facility] Stop: 01/29/19 10:59 Last Admin: 01/28/19 10:48 Dose: 110 mls/hr Lactated Ringer's (Lactated Ringers 1000 Ml Bag*) 1,000 mls @ 100 mls/hr IV PER RATE [facility] Last Admin: 01/28/19 14:43 Dose: 100 mls/hr Ondansetron HCl (Zofran Inj*) 4 mg IV Q4H PRN PRN Reason: NAUSEA/VOMITING Last Admin: 01/27/19 15:57 Dose: 4 mg Sodium Bicarbonate (Sodium Bicarbonate (Antacid)*) 650 mg PO AC [facility] Vital Signs - 8 hr 01/28/19 10:54 Temperature 97.5 F Pulse Rate 53 Respiratory 20 Rate Blood Pressure 125/88 (mmHg) O2 Sat by Pulse 99 Oximetry Oxygen Devices in Use Now: None Appearance: Patient is a 78yo female who appears stated age and is sitting in the bed in [facility]. Eyes: No Scleral Icterus, PERRLA Ears/Nose/Mouth/Throat: NL Teeth, Lips, Gums, Clear Oropharnyx, Mucous Membranes Moist Neck: NL Appearance and Movements; NL JVP, Trachea Midline Respiratory: Symmetrical Chest Expansion and Respiratory Effort, Clear to Auscultation Cardiovascular: NL Sounds; No Murmurs; No JVD, RRR, - - Trace B/L LE edema. Abdominal: NL Sounds; No Tenderness; No Distention, No Hepatosplenomegaly Lymphatic: No Cervical Adenopathy Extremities: No Clubbing, Cyanosis Skin: No Rash or Ulcers, No Nodules or Sclerosis Neurological: Alert and Oriented x 3, NL Sensation, NL Muscle Strength and Tone , - - CN II-XII intact. Result Diagrams: 01/28/19 07:51 01/28/19 15:29 Additional Lab and Data: Lab Results Microbiology and Other Data: Microbiology 01/26/19 22:41 Urine Culture - Final Urine Assess/Plan/Problems-Billing Assessment: Ms. Das is a 78 yo F with PMH of HTN and perforated diverticulitis s/p colostomy; who presented to the ED with c/o abdominal pain and was found to have GIAN and hyponatremia. Hyponatremia is improving, but Renal function is not improving. - Patient Problems (1) GIAN (acute kidney injury) Current Visit: Yes Status: Acute Code(s): N17.9 - ACUTE KIDNEY FAILURE, UNSPECIFIED SNOMED Code(s): 14068595 Comment: - Unclear etiology - Baseline creatinine is unknown, no history of CKD that has been mentioned. - Appreciate Nephrology consult; Dr. Guadalupe agrees with current management - Continue IVF and buffer - FeNa is prerenal, but this was on Diuretics and may not be particularly relevent. (2) Hyponatremia Current Visit: Yes Status: Acute Code(s): E87.1 - HYPO-OSMOLALITY AND HYPONATREMIA SNOMED Code(s): 97380936 Comment: - Improving - At least in part due to HCTZ and insensible losses from colostomy. - Continue IVF, goal of improvement of 8 in sodium daily. (3) Abdominal pain Current Visit: Yes Status: Acute Code(s): R10.9 - UNSPECIFIED ABDOMINAL PAIN SNOMED Code(s): 16137221 Comment: - Resolved - CT unremarkable - Tolerating Renal diet (4) Anemia Current Visit: Yes Status: Acute Code(s): D64.9 - ANEMIA, UNSPECIFIED SNOMED Code(s): 566149302 Comment: - Iron deficiency, but question if there is also a component of chronic disease if there is undiagnosed CKD - Continue IV iron. (5) Colostomy present Current Visit: Yes Status: Acute Code(s): Z93.3 - COLOSTOMY STATUS SNOMED Code(s): 146058464 Comment: - Adequate output - Likely Contributing to insensible fluid losses. (6) DVT prophylaxis Current Visit: Yes Status: Acute Code(s): Z29.9 - ENCOUNTER FOR PROPHYLACTIC MEASURES, UNSPECIFIED SNOMED Code(s): 398878982 Comment: - SCDs (7) Hypertension Current Visit: Yes Status: Acute Code(s): I10 - ESSENTIAL (PRIMARY) HYPERTENSION SNOMED Code(s): 34235996 Comment: - Normotensive on Amlodipine. (8) Full code status Current Visit: Yes Status: Acute Code(s): Z78.9 - OTHER SPECIFIED HEALTH STATUS SNOMED Code(s): 153233670 Comment: Status and Disposition: Inpatient. Anticipate d/c home when medically stable.
[2019-01-28] MEDS: Sodium Bicarbonate (ANTACID)* 650 MG TAB PO SCH (17:05)
[2019-01-28] MEDS: Lactated Ringers 1000 ML Bag* 1,000 ML IV SCH (22:03)
[2019-01-29] MEDS: Lactated Ringers 1000 ML Bag* 1,000 ML IV SCH ×3 (01:54→19:36)
[2019-01-29 06:25] LABS: ABS Basophils 0.1 10^3/ul (0-0.2); ABS Eosinophils 0.2 10^3/ul (0-0.6); ABS Lymphocytes 0.7 10^3/ul (1.0-4.8); ABS Monocytes 0.9 10^3/ul (0-0.8); ABS Neutrophils 5.6 10^3/ul (1.5-7.7); Eosinophil % 3.2 %; Hematocrit 25 % (35-47); Hemoglobin 8.3 g/dL (12.0-16.0); Lymphocyte % 9.2 %; Mean Corpuscular HGB Conc 33 g/dL (31-36); Mean Corpuscular Hemoglobin 28 pg (27-31); Mean Corpuscular Volume 86 fL (80-97); Platelet Count 262 10^3/uL (150-450); Red Blood Count 2.93 10^6 /uL (3.70-4.87); Red Cell Distribution Width 15 % (10-15); White Blood Count 7.6 10^3/uL (3.5-10.8)
[2019-01-29 06:42] LABS: BUN/Creatinine Ratio 7.8 (8-20); EGFR African American 11.2 (>60); EGFR Non-African American 9.2 (>60); Potassium 3.9 mmol/L (3.5-5.0)
[2019-01-29] MEDS: Sodium Bicarbonate (ANTACID)* 650 MG TAB PO SCH ×3 (07:25→16:26)
[2019-01-29] MEDS: Ferric Gluconate IV* 125 MG in NS 0.9% 100 ML* 100 ML IVPB SCH (09:57)
[2019-01-29] MEDS: amLODIPine TAB* 5 MG PO SCH (09:57)
--- NOTE | 2019-01-29 14:30 | PN ---
Subjective Date of Service: 01/29/19 Interval History: Patient continues to feel well. Patient denies CP, SOB, F/C, N/V, abdominal pain , increase in ostomy output, dizziness, oliguria, or other pain. Family History: Unchanged from Admission Social History: Unchanged from Admission Past Medical History: Unchanged from Admission Objective Active Medications: Acetaminophen (Tylenol Tab*) 650 mg PO Q4H PRN PRN Reason: FEVER/PAIN Last Admin: 01/27/19 00:53 Dose: 650 mg Amlodipine Besylate (Norvasc Tab*) 5 mg PO DAILY [facility] Last Admin: 01/29/19 09:57 Dose: 5 mg Hydralazine HCl (Apresoline Iv*) 5 mg IV SLOW PU Q6H PRN PRN Reason: Systolic Bp Greater Than:160 Hydromorphone HCl (Dilaudid Inj1s*) 0.5 mg IV SLOW PU Q6H PRN PRN Reason: Pain 7-10 Last Admin: 01/27/19 15:57 Dose: 0.5 mg Lactated Ringer's (Lactated Ringers 1000 Ml Bag*) 1,000 mls @ 50 mls/hr IV PER RATE [facility] Last Admin: 01/29/19 07:25 Dose: 50 mls/hr Ondansetron HCl (Zofran Inj*) 4 mg IV Q4H PRN PRN Reason: NAUSEA/VOMITING Last Admin: 01/27/19 15:57 Dose: 4 mg Sodium Bicarbonate (Sodium Bicarbonate (Antacid)*) 650 mg PO AC [facility] Last Admin: 01/29/19 11:26 Dose: 650 mg Vital Signs - 8 hr 01/29/19 01/29/19 01/29/19 07:15 07:47 11:15 Temperature 97.6 F 97.5 F Pulse Rate 58 66 Respiratory 16 16 17 Rate Blood Pressure 141/56 152/59 (mmHg) O2 Sat by Pulse 100 98 Oximetry Oxygen Devices in Use Now: None Appearance: Patient is a 78yo female who appears stated age and is sitting in the bed in NAD. Eyes: No Scleral Icterus, PERRLA Ears/Nose/Mouth/Throat: NL Teeth, Lips, Gums, Clear Oropharnyx, Mucous Membranes Moist Neck: NL Appearance and Movements; NL JVP, Trachea Midline Respiratory: Symmetrical Chest Expansion and Respiratory Effort, Clear to Auscultation Cardiovascular: NL Sounds; No Murmurs; No JVD, RRR, No Edema Abdominal: NL Sounds; No Tenderness; No Distention, No Hepatosplenomegaly Lymphatic: No Cervical Adenopathy Extremities: No Edema, No Clubbing, Cyanosis Skin: No Rash or Ulcers, No Nodules or Sclerosis Neurological: Alert and Oriented x 3, NL Sensation, NL Muscle Strength and Tone , - - CN II-XII intact. Result Diagrams: 01/29/19 06:12 01/29/19 06:12 Additional Lab and Data: Lab Results Microbiology and Other Data: Microbiology 01/26/19 22:41 Urine Culture - Final Urine Assess/Plan/Problems-Billing Assessment: Ms. Das is a 78 yo F with PMH of HTN and perforated diverticulitis s/p colostomy; who presented to the ED with c/o abdominal pain and was found to have GIAN and hyponatremia. Hyponatremia is improving, but Renal function is not improving. - Patient Problems (1) GIAN (acute kidney injury) Current Visit: Yes Status: Acute Code(s): N17.9 - ACUTE KIDNEY FAILURE, UNSPECIFIED SNOMED Code(s): 56238506 Comment: - Unclear etiology - Baseline creatinine is unknown, no history of CKD that has been mentioned. - Appreciate Nephrology consult; Dr. Guadalupe agrees with current management - Continue IVF with tapering and buffer - FeNa is prerenal, but this was on Diuretics and may not be particularly relevent. - No indication for dialysis at this time. - Likely due to ATN, hopeful for improvement at this time. (2) Hyponatremia Current Visit: Yes Status: Acute Code(s): E87.1 - HYPO-OSMOLALITY AND HYPONATREMIA SNOMED Code(s): 89615202 Comment: - Improving - At least in part due to HCTZ and insensible losses from colostomy. - Continue IVF, goal of improvement of 8 in sodium daily. (3) Abdominal pain Current Visit: Yes Status: Acute Code(s): R10.9 - UNSPECIFIED ABDOMINAL PAIN SNOMED Code(s): 35079744 Comment: - Resolved - CT unremarkable - Tolerating Renal diet (4) Anemia Current Visit: Yes Status: Acute Code(s): D64.9 - ANEMIA, UNSPECIFIED SNOMED Code(s): 169106863 Comment: - Iron deficiency, but question if there is also a component of chronic disease if there is undiagnosed CKD - Check Epo Level - Finished IV iron 1g - Positive Stool occult blood - Discussed with GI, will need outpatient endoscopy/colonoscopy, but no urgency at this time - Has never had previous screening colonoscopy. (5) Colostomy present Current Visit: Yes Status: Acute Code(s): Z93.3 - COLOSTOMY STATUS SNOMED Code(s): 924016859 Comment: - Adequate output - Likely Contributing to insensible fluid losses. (6) Hypertension Current Visit: Yes Status: Acute Code(s): I10 - ESSENTIAL (PRIMARY) HYPERTENSION SNOMED Code(s): 91529163 Comment: - Normotensive on Amlodipine. (7) DVT prophylaxis Current Visit: Yes Status: Acute Code(s): Z29.9 - ENCOUNTER FOR PROPHYLACTIC MEASURES, UNSPECIFIED SNOMED Code(s): 112063318 Comment: - SCDs due to positive FOBT (8) Full code status Current Visit: Yes Status: Acute Code(s): Z78.9 - OTHER SPECIFIED HEALTH STATUS SNOMED Code(s): 820608177 Comment: Status and Disposition: Inpatient. Anticipate d/c home when medically stable.
[2019-01-30] MEDS: Sodium Bicarbonate (ANTACID)* 650 MG TAB PO SCH ×2 (07:50→10:45)
[2019-01-30] MEDS: amLODIPine TAB* 5 MG PO SCH (07:50)
[2019-01-30 09:45] LABS: ABS Basophils 0.1 10^3/ul (0-0.2); ABS Eosinophils 0.3 10^3/ul (0-0.6); ABS Lymphocytes 0.9 10^3/ul (1.0-4.8); ABS Monocytes 0.6 10^3/ul (0-0.8); ABS Neutrophils 6.4 10^3/ul (1.5-7.7); Eosinophil % 3.2 %; Hematocrit 27 % (35-47); Hemoglobin 9.1 g/dL (12.0-16.0); Lymphocyte % 10.9 %; Mean Corpuscular HGB Conc 33 g/dL (31-36); Mean Corpuscular Hemoglobin 29 pg (27-31); Mean Corpuscular Volume 85 fL (80-97); Mean Platelet Volume 6.4 fL (7.4-10.4); Nucleated Red Blood Cells % 0.1; Platelet Count 321 10^3/uL (150-450); Red Blood Count 3.19 10^6 /uL (3.70-4.87); Red Cell Distribution Width 15 % (10-15); White Blood Count 8.3 10^3/uL (3.5-10.8)
[2019-01-30 10:07] LABS: BUN/Creatinine Ratio 8.2 (8-20); Calcium 9.4 mg/dL (8.6-10.3); EGFR African American 12.7 (>60); EGFR Non-African American 10.5 (>60); Potassium 4.3 mmol/L (3.5-5.0)
[2019-01-30 12:10] VITALS: BP 158/67
--- NOTE | 2019-01-30 23:08 | DS ---
CC: Dr. Eric Simpson * DISCHARGE SUMMARY: DATE OF ADMISSION: 01/27/19 DATE OF DISCHARGE: 01/30/19 PRIMARY CARE PROVIDER: Dr. Eric Simpson. MY ATTENDING WHILE IN THE HOSPITAL: Dr. Kathia Gonsalez.* (DICTATED BY ROLA RUBI) PRIMARY DISCHARGE DIAGNOSES: 1. Acute renal failure likely due to dehydration. 2. Acute tubular necrosis. 3. Severe hyponatremia, resolved. 4. Iron-deficiency anemia. 5. Positive stool occult blood. SECONDARY DISCHARGE DIAGNOSES: 1. History of complicated diverticulitis with perforation and colostomy. 2. High blood pressure. 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 No additional findings correlate with the patient's symptomatology. Venous Doppler study on 01/27/19 read as no evidence for deep vein thrombosis. MEDICATIONS AT DISCHARGE: 1. Metrocream ointment application topical daily. 2. Tylenol 650 mg q.4 hours as needed. 3. Amlodipine 10 mg p.o. daily. 4. Ferrous sulfate 325 mg p.o. daily. 5. Sodium bicarbonate 350 mg p.o. with meals. New medications at discharge: 1. Tylenol. 2. Amlodipine. 3. Ferrous sulfate. 4. Sodium bicarbonate. Medications discontinued at discharge: Triamterene/hydrochlorothiazide. HOSPITAL COURSE: This is a brief summary of the patient's presentation. For more details, please see history and physical from Nahum Rodriguez MD on 01/27/19. In brief, the patient is a 78-year-old female with past medical history significant for the above, who presented to the emergency department after 3 weeks of worsening abdominal pain, decreased appetite with vomiting without blood and poor oral intake with dizziness and leg swelling, which has been a chronic problem for her on and off. The patient was seen by her primary care provider several times. During this time, the patient at one point was prescribed lisinopril, which was stopped and the patient did not have increased output from her colostomy or any blood in her colostomy. The patient does not have any mention of renal failure in her history per her report. The patient in the emergency department had a CT read as above with no cause for her nausea and vomiting. The patient did have lab work showing a sodium level of 119 and creatinine of 4.76. The patient was admitted, started on normal saline. The patient was found to be anemic and was given 1 g of IV iron. The patient was seen in consultation by Dr. González Guadalupe of Nephrology, who recommended fluids and believes this was due to dehydration and acute tubular necrosis from her diuretic use and poor oral intake. The patient also been taking ibuprofen and was started on lisinopril. The patient was given initially large dose of normal saline with slight improvement in creatinine and slow improvement in her sodium. The patient's nausea and vomiting improved overnight. She was able to tolerate a diet without any vomiting. The patient continued to have slow improvement but within parameters for her sodium. The patient's hemoglobin declined from initially 10.0 to low 8.3 on 01/29/19. The patient, however, did not feel dizzy or having other symptoms associated with this. The patient had stool occult blood of her colostomy output, which was positive for blood. The patient had no melena or bright red blood in her colostomy and has not at any point. The patient was buffered with sodium bicarbonate as above due to anion gap metabolic acidosis likely related to the kidney failure. On 01/30/19, the patient's creatinine improved from 4.61 to 4.14. The patient's sodium returned to the normal range at 135. The patient was anxious for discharge on 01/30/19 with close followup with primary care provider. The patient was stable and amenable for discharge on 01/30/19. PHYSICAL EXAMINATION ON DISCHARGE: General: The patient is a 78-year-old female who appears stated age, sitting comfortable in bed, in no acute distress. Vital Signs: At the time of evaluation, temperature 98.4, pulse rate 72, respiratory rate 18, oxygen saturation 98% on room air, blood pressure 150/67. HEENT: Head: Normocephalic and atraumatic. Sclerae anicteric. No conjunctival injection. Nasal mucosa moist. Oral mucosa moist. No pharyngeal erythema, discharge, or exudate. Neck: Supple and nontender. No lymphadenopathy. No carotid bruit auscultated. No JVD. Cardiac: Regular rate and rhythm. No clicks, murmurs, gallops, or rubs. Pulses 2+ bilateral in dorsalis pedis, posterior tibialis, and radial areas. 1+ bilateral lower extremity edema is noted. Respiratory: Clear to auscultation bilaterally. No wheezes, rales or rhonchi. Good air exchange bilaterally. Abdomen: Soft, nontender to palpation. Bowel sounds present and normoactive in all 4 quadrants. No hepatosplenomegaly. No abdominal bruits auscultated. No hepatojugular reflux. Colostomy in place without signs of strangulation in the stoma. Genitourinary: No suprapubic or CVA tenderness. Skin: Clear and intact. No rashes. Neuro: Cranial nerves II through XII intact. No focal deficits. Alert and oriented x3. Psychiatric: Pleasant and cooperative. DISCHARGE PLAN: The patient will be discharged to home. The patient was anxious to go home. The patient had no complications from her renal failure including no worsening acidosis, no elevated potassium, no elevated magnesium. The patient continued to put out large amounts of urine daily and showed no signs of oliguria. The patient did gain significant weight while in the hospital , but these were conducted by different scales. The patient was encouraged to follow her weight at home. The patient should follow up with her primary care provider within 1 week as was already scheduled for repeat CBC and BMP. The patient should return to the hospital for decreased urine output, severe shortness of breath, or other alarming symptoms. The patient has been encouraged to drink plenty of water. The patient should not take her hydrochlorothiazide/triamterene at home. The patient's blood pressure is slightly high and she has been started on amlodipine and the dose has been uptitrated while in the hospital. The patient will prefer not to see Dr. Guadalupe of Nephrology if her kidney function does not return to the point that does not necessitate a Nephrology referral. The patient should return to the hospital for other alarming symptoms such as intractable nausea and vomiting. The patient's initial nausea and vomiting was likely due to her hyponatremia. The patient should also return to the hospital for severe shortness of breath, chest pain, large amount of blood in her colostomy or other alarming symptoms. The patient is to follow up with Gastroenterology within 1 month for consideration of a colonoscopy and anoscopy. The patient should have her blood counts routinely checked through her primary care provider. The patient's erythropoietin was 9.9 on 01/29/19 and consideration for erythropoietin infusions should be made. If the patient's blood counts did not continue to decline or not respond to iron supplementation, the patient will be started on oral iron supplementation. The patient's case was discussed while inpatient with Dr. Abel Carrasco of Gastroenterology, who recommended outpatient follow up of the patient's anemia and stool occult blood positivity. The patient should have renal diet and she can engage in activity as tolerated. ROLA RUBI [id number]/[facility] #: [id number]
[2019-01-31] MEDS ORDERED: amLODIPine TAB* 5 MG PO SCH (09:00)
== END 2019-01-30 15:00 | disposition home or self-care (01) | DRG 683 ==
LOC: ED 18:12 → MEDTELE 23:36 → MED 01-29 20:00
PROVIDERS: ADMIT Internal Medicine; ATTEND Internal Medicine
DX: N17.0 Acute kidney failure with tubular necrosis (principal); E87.1 Hypo-osmolality and hyponatremia; E87.2 Acidosis; E86.0 Dehydration; D50.9 Iron deficiency anemia, unspecified; I10 Essential (primary) hypertension; M79.89 Other specified soft tissue disorders; Z93.3 Colostomy status; Z79.899 Other long term (current) drug therapy; Z88.8 Allergy status to other drugs, medicaments and biological substances; Z87.891 Personal history of nicotine dependence
CPT/HCPCS: 36415; 74176; 80048; 80053; 80076; 81003; 81015; 82272; 82436; 82570; 82607; 82668; 82728; 82746; 83540; 83550; 83605; 83690; 83735; 83930; 83935; 84133; 84300; 85025; 85610; 85730; 86140; 87086; 99284; A9270-GY; J1170; J2405; J2916; J3480

== ENCOUNTER 2023-02-18 12:04 | Inpatient (IN) ==
[2023-02-18] MEDS ORDERED: Morphine 2 MG/ML SYRINGE IV ONE (12:46)
[2023-02-18] MEDS ORDERED: Ondansetron 4 mg VIAL 2 MG/ML 2 ml VIAL IV ONE (12:46)
[2023-02-18 13:35] LABS: ABS Eosinophils 0.2 10^3/uL (0.0-0.5); ABS Lymphocytes 0.5 10^3/uL (1.0-4.8); ABS Monocytes 0.8 10^3/uL (0.0-0.9); ABS Neutrophils 11.7 10^3/uL (1.5-7.6); Eosinophil % 1.7 %; Hematocrit 32.3 % (35-45); Hemoglobin 10.7 g/dL (11.5-14.3); Lymphocyte % 3.9 %; Mean Corpuscular Hemoglobin 32.1 pg (27-33); Mean Corpuscular Hgb Conc 33.1 g/dL (31-36); Mean Platelet Volume 6.8 fL (7.5-11.2); Platelet Count 190 10^3/uL (150-450); Red Blood Count 3.32 10^6/uL (3.63-4.92); White Blood Count 13.2 10^3/uL (3.8-11.8)
[2023-02-18 13:51] LABS: Albumin/Globulin Ratio 1.1 (1-3); Calcium 8.9 mg/dL (8.6-10.3); Creatinine, Serum 3.98 mg/dL (0.51-0.95); Globulin 3.5 g/dL (2-4); Potassium 4.7 mmol/L (3.5-5.0); Total Bilirubin 0.6 mg/dL (0.2-1.0); Total Protein 7.5 g/dL (6.4-8.9); eGFR CKD-EPI 10.9 (>60)
[2023-02-18 19:31] LABS: INR 0.98 (0.88-1.18)
[2023-02-18 19:38] LABS: Magnesium 2.6 mg/dL (1.9-2.7)
[2023-02-18 20:33] LABS: Ferritin 210.1 ng/mL (11-307)
[2023-02-18] MEDS ORDERED: Ondansetron 4 mg VIAL 2 MG/ML 2 ml VIAL IV PRN (22:53)
[2023-02-18] MEDS ORDERED: Morphine 2 MG/ML SYRINGE IV PRN (22:54)
[2023-02-18] MEDS ORDERED: Enoxaparin 30 MG/0.3 ML SYR SUBCUT SCH (23:45)
[2023-02-19] MEDS ORDERED: ceFAZolin 1 GM in Dextrose 1 GM/50 ML BAG IVPB SCH (02:00)
[2023-02-19 06:33] LABS: ABS Lymphocytes 0.6 10^3/uL (1.0-4.8); ABS Monocytes 0.8 10^3/uL (0.0-0.9); ABS Neutrophils 4.1 10^3/uL (1.5-7.6); Eosinophil % 0.7 %; Hematocrit 28.7 % (35-45); Hemoglobin 9.7 g/dL (11.5-14.3); Lymphocyte % 10.5 %; Mean Corpuscular Hemoglobin 32.7 pg (27-33); Mean Corpuscular Hgb Conc 33.7 g/dL (31-36); Mean Corpuscular Volume 96.8 fL (80-97); Mean Platelet Volume 7.1 fL (7.5-11.2); Platelet Count 168 10^3/uL (150-450); Red Blood Count 2.97 10^6/uL (3.63-4.92); White Blood Count 5.6 10^3/uL (3.8-11.8)
[2023-02-19 06:34] LABS: INR 1.01 (0.88-1.18)
[2023-02-19 06:48] LABS: Albumin 3.9 g/dL (3.2-5.2); Albumin/Globulin Ratio 1.3 (1-3); Calcium 8.5 mg/dL (8.6-10.3); Creatinine, Serum 4.61 mg/dL (0.51-0.95); Magnesium 2.6 mg/dL (1.9-2.7); Potassium 4.8 mmol/L (3.5-5.0); Total Bilirubin 0.9 mg/dL (0.2-1.0); Total Protein 6.9 g/dL (6.4-8.9); eGFR CKD-EPI 9.1 (>60)
[2023-02-19] MEDS ORDERED: Sulfur Hexaflouride MICROSPHR 25 MG VIAL ONE (07:45)
[2023-02-19] MEDS: [UNRECOGNIZED DRUG - OTHER] PO SCH ×2 (08:45→21:19)
[2023-02-19] MEDS: AREDS PO SCH ×2 (08:45→21:19)
[2023-02-19] MEDS: Sodium Bicarb 650 mg (ANTACID) TAB PO SCH ×2 (08:46→21:20)
[2023-02-19] MEDS ORDERED: Bupivacaine 0.25% w/EPI 10 ML SDV ONE (12:57)
[2023-02-19] MEDS ORDERED: Bupivacaine 0.25% EPI 200,000 30 ML SDV ONE (12:58)
[2023-02-19] MEDS ORDERED: Lidocaine 2% PF 5 ML VIAL ONE (14:35)
[2023-02-19] MEDS ORDERED: Rocuronium 50 mg VIAL 10 mg/ml 5 ml VIAL (50 mg) ONE (14:35)
[2023-02-19] MEDS ORDERED: fentaNYL 100 mcg/2 ml 50 MCG/ML VIAL ONE (14:35)
[2023-02-19] MEDS ORDERED: Propofol 10 MG/ML 20 ML BTL ONE (14:35)
[2023-02-19] MEDS ORDERED: ceFAZolin 2 GM PREMIX 2 GM/50 ML BAG ONE (15:28)
[2023-02-19] MEDS ORDERED: Morphine 4 MG/ML VIAL (1 ml) ONE (16:10)
[2023-02-19 17:32] LABS: Ferritin 89.5 ng/mL (11-307)
[2023-02-19] MEDS ORDERED: Acetaminophen IV 1 GM/100ML 1,000 MG/100 ML BAG IV ONE (18:09)
[2023-02-19] MEDS ORDERED: Ondansetron 4 mg VIAL 2 MG/ML 2 ml VIAL ONE (18:15)
[2023-02-19] MEDS ORDERED: Dexamethasone IV 4 MG/ML VIAL 1 ml VIAL ONE ×2 (18:15)
[2023-02-19] MEDS ORDERED: Phenylephrine IV 10 MG/ML 1 ml VIAL ONE (19:02)
[2023-02-19] MEDS ORDERED: HYDROmorphone 1 MG/1 ML SYRINGE IV PRN (19:07)
[2023-02-19] MEDS ORDERED: Ondansetron 4 mg VIAL 2 MG/ML 2 ml VIAL IV PRN (19:07)
[2023-02-19] MEDS ORDERED: Naloxone 0.4 mg VIAL 0.4 mg/ml 1 ml VIAL IV PRN (19:07)
[2023-02-19] MEDS ORDERED: fentaNYL 100 mcg/2 ml 50 MCG/ML VIAL IV PRN (19:07)
[2023-02-19] MEDS: Acetaminophen IV 1 GM/100ML 1,000 MG/100 ML BAG IV PRN ×2 (21:47)
[2023-02-20] MEDS ORDERED: ceFAZolin 1 GM in Dextrose 1 GM/50 ML BAG IVPB SCH ×2 (02:00→14:00)
[2023-02-20 05:56] LABS: ABS Lymphocytes 0.3 10^3/uL (1.0-4.8); ABS Monocytes 0.6 10^3/uL (0.0-0.9); ABS Neutrophils 8.6 10^3/uL (1.5-7.6); Hematocrit 24.3 % (35-45); Hemoglobin 8.2 g/dL (11.5-14.3); Lymphocyte % 2.7 %; Mean Corpuscular Hemoglobin 33.1 pg (27-33); Mean Corpuscular Hgb Conc 33.7 g/dL (31-36); Mean Corpuscular Volume 98.1 fL (80-97); Mean Platelet Volume 6.8 fL (7.5-11.2); Platelet Count 138 10^3/uL (150-450); Red Blood Count 2.48 10^6/uL (3.63-4.92); Red Cell Distribution Width 14.2 % (12-17); White Blood Count 9.4 10^3/uL (3.8-11.8)
[2023-02-20] MEDS: Acetaminophen IV 1 GM/100ML 1,000 MG/100 ML BAG IV PRN (06:04)
[2023-02-20 06:15] LABS: Albumin 3.4 g/dL (3.2-5.2); Albumin/Globulin Ratio 1.1 (1-3); Calcium 8.5 mg/dL (8.6-10.3); Creatinine, Serum 4.89 mg/dL (0.51-0.95); Globulin 3.1 g/dL (2-4); Potassium 5.1 mmol/L (3.5-5.0); Total Bilirubin 0.4 mg/dL (0.2-1.0); Total Protein 6.5 g/dL (6.4-8.9); eGFR CKD-EPI 8.5 (>60)
[2023-02-20] MEDS ORDERED: Enoxaparin 30 MG/0.3 ML SYR SUBCUT SCH (09:00)
[2023-02-20] MEDS: Sodium Bicarb 650 mg (ANTACID) TAB PO SCH ×2 (11:00→21:20)
[2023-02-20] MEDS: Enoxaparin 30 MG/0.3 ML SYR SUBCUT SCH (11:01)
[2023-02-20] MEDS: AREDS PO SCH ×2 (11:01→21:20)
[2023-02-20] MEDS: [UNRECOGNIZED DRUG - OTHER] PO SCH ×2 (11:01→21:20)
[2023-02-20] MEDS ORDERED: Senna TAB 8.6 mg TAB PO PRN (13:42)
[2023-02-20] MEDS ORDERED: Polyethylene Glycol 3350 17 GM PACKET PO PRN (13:43)
[2023-02-21 05:42] LABS: ABS Eosinophils 0.1 10^3/uL (0.0-0.5); ABS Lymphocytes 0.5 10^3/uL (1.0-4.8); ABS Monocytes 0.9 10^3/uL (0.0-0.9); ABS Nucleated RBC 0.01 10^3/ul; Eosinophil % 0.9 %; Hematocrit 20.9 % (35-45); Hemoglobin 7.1 g/dL (11.5-14.3); Lymphocyte % 5.8 %; Mean Corpuscular Hemoglobin 33.1 pg (27-33); Mean Corpuscular Hgb Conc 33.8 g/dL (31-36); Mean Corpuscular Volume 97.8 fL (80-97); Mean Platelet Volume 7.2 fL (7.5-11.2); Nucleated Red Blood Cells % 0.1 /100 WBC (0.0-0.4); Platelet Count 130 10^3/uL (150-450); Red Blood Count 2.13 10^6/uL (3.63-4.92); Red Cell Distribution Width 14.1 % (12-17); White Blood Count 8.4 10^3/uL (3.8-11.8)
[2023-02-21 06:04] LABS: Calcium 8.1 mg/dL (8.6-10.3); Creatinine, Serum 5.01 mg/dL (0.51-0.95); Potassium 4.9 mmol/L (3.5-5.0); eGFR CKD-EPI 8.2 (>60)
[2023-02-21] MEDS: Sodium Bicarb 650 mg (ANTACID) TAB PO SCH ×2 (07:47→20:03)
[2023-02-21] MEDS: AREDS PO SCH ×2 (07:55→20:08)
[2023-02-21] MEDS: [UNRECOGNIZED DRUG - OTHER] PO SCH ×2 (07:55→20:08)
[2023-02-21] MEDS: Enoxaparin 30 MG/0.3 ML SYR SUBCUT SCH (08:17)
[2023-02-21 08:48] LABS: Osmolality Serum 310 mOsm/kg (275-295)
[2023-02-21 11:27] LABS: Hematocrit 21.8 % (35-45); Hemoglobin 7.4 g/dL (11.5-14.3)
[2023-02-21] MEDS ORDERED: Lactated Ringers 1000 ml BAG 1,000 ML IV ONE (13:19)
[2023-02-21 15:42] LABS: Urine Osmo 299 mOsm/kg (150-1150)
[2023-02-22 06:06] LABS: ABS Eosinophils 0.2 10^3/uL (0.0-0.5); ABS Lymphocytes 0.4 10^3/uL (1.0-4.8); ABS Monocytes 0.8 10^3/uL (0.0-0.9); ABS Neutrophils 6.4 10^3/uL (1.5-7.6); ABS Nucleated RBC 0.02 10^3/ul; Eosinophil % 2.2 %; Hematocrit 19.9 % (35-45); Hemoglobin 6.8 g/dL (11.5-14.3); Lymphocyte % 5.3 %; Mean Corpuscular Hgb Conc 34.1 g/dL (31-36); Nucleated Red Blood Cells % 0.2 /100 WBC (0.0-0.4); Platelet Count 154 10^3/uL (150-450); Red Blood Count 2.05 10^6/uL (3.63-4.92); Red Cell Distribution Width 14.3 % (12-17); White Blood Count 7.9 10^3/uL (3.8-11.8)
[2023-02-22 06:23] LABS: Calcium 8.3 mg/dL (8.6-10.3); Creatinine, Serum 4.71 mg/dL (0.51-0.95); Potassium 4.6 mmol/L (3.5-5.0); eGFR CKD-EPI 8.9 (>60)
[2023-02-22] MEDS ORDERED: NS 0.9% 500 ml BAG 500 ML IV ONE (08:15)
[2023-02-22] MEDS: Enoxaparin 30 MG/0.3 ML SYR SUBCUT SCH (08:22)
[2023-02-22] MEDS: Sodium Bicarb 650 mg (ANTACID) TAB PO SCH ×2 (08:22→21:04)
[2023-02-22] MEDS: AREDS PO SCH ×2 (08:23→20:50)
[2023-02-22] MEDS: [UNRECOGNIZED DRUG - OTHER] PO SCH ×2 (08:23→20:50)
[2023-02-22 12:21] LABS: Calcium 8.4 mg/dL (8.6-10.3); Creatinine, Serum 4.59 mg/dL (0.51-0.95); Potassium 4.8 mmol/L (3.5-5.0); eGFR CKD-EPI 9.1 (>60)
[2023-02-22 13:43] LABS: TSH Ultra Thyroid Stim Horm 8.62 mcIU/mL (0.34-5.60)
[2023-02-22 14:49] LABS: Uric Acid 8.3 mg/dL (2.3-6.6)
[2023-02-22] MEDS: Acetaminophen IV 1 GM/100ML 1,000 MG/100 ML BAG IV PRN (16:02)
[2023-02-22 16:10] LABS: Urine Creatinine Concentration 58.9 mg/dL (20.00-320.00)
[2023-02-22 17:03] LABS: Hematocrit 22.1 % (35-45); Hemoglobin 7.7 g/dL (11.5-14.3)
[2023-02-22 17:18] LABS: Calcium 8.3 mg/dL (8.6-10.3); Creatinine, Serum 4.37 mg/dL (0.51-0.95); Potassium 4.9 mmol/L (3.5-5.0); eGFR CKD-EPI 9.7 (>60)
[2023-02-23 07:18] LABS: ABS Eosinophils 0.3 10^3/uL (0.0-0.5); ABS Lymphocytes 0.5 10^3/uL (1.0-4.8); ABS Monocytes 0.8 10^3/uL (0.0-0.9); ABS Neutrophils 6.8 10^3/uL (1.5-7.6); ABS Nucleated RBC 0.02 10^3/ul; Eosinophil % 3.2 %; Hematocrit 22.6 % (35-45); Hemoglobin 7.8 g/dL (11.5-14.3); Lymphocyte % 5.6 %; Mean Corpuscular Hemoglobin 32.4 pg (27-33); Mean Corpuscular Hgb Conc 34.5 g/dL (31-36); Mean Corpuscular Volume 93.9 fL (80-97); Mean Platelet Volume 6.4 fL (7.5-11.2); Nucleated Red Blood Cells % 0.2 /100 WBC (0.0-0.4); Platelet Count 163 10^3/uL (150-450); Red Blood Count 2.41 10^6/uL (3.63-4.92); Red Cell Distribution Width 14.7 % (12-17); White Blood Count 8.4 10^3/uL (3.8-11.8)
[2023-02-23 07:36] LABS: Calcium 8.3 mg/dL (8.6-10.3); Creatinine, Serum 4.28 mg/dL (0.51-0.95); Potassium 4.8 mmol/L (3.5-5.0); eGFR CKD-EPI 9.9 (>60)
[2023-02-23] MEDS: Sodium Bicarb 650 mg (ANTACID) TAB PO SCH ×2 (07:44→20:44)
[2023-02-23] MEDS: Enoxaparin 30 MG/0.3 ML SYR SUBCUT SCH (07:44)
[2023-02-23] MEDS: [UNRECOGNIZED DRUG - OTHER] PO SCH ×2 (08:06→20:44)
[2023-02-23] MEDS: AREDS PO SCH ×2 (08:06→20:44)
[2023-02-24 07:03] LABS: Hematocrit 23.5 % (35-45); Hemoglobin 8.1 g/dL (11.5-14.3); Mean Corpuscular Hemoglobin 32.9 pg (27-33); Mean Corpuscular Hgb Conc 34.5 g/dL (31-36); Mean Corpuscular Volume 95.5 fL (80-97); Mean Platelet Volume 6.5 fL (7.5-11.2); Platelet Count 207 10^3/uL (150-450); Red Blood Count 2.46 10^6/uL (3.63-4.92); Red Cell Distribution Width 14.8 % (12-17); White Blood Count 8.8 10^3/uL (3.8-11.8)
[2023-02-24 07:17] LABS: Calcium 8.2 mg/dL (8.6-10.3); Creatinine, Serum 4.25 mg/dL (0.51-0.95); Magnesium 2.8 mg/dL (1.9-2.7); Potassium 4.8 mmol/L (3.5-5.0)
[2023-02-24] MEDS: Enoxaparin 30 MG/0.3 ML SYR SUBCUT SCH (09:10)
[2023-02-24] MEDS: Sodium Bicarb 650 mg (ANTACID) TAB PO SCH ×2 (09:10→20:34)
[2023-02-24] MEDS: [UNRECOGNIZED DRUG - OTHER] PO SCH ×2 (09:11→20:35)
[2023-02-24] MEDS: AREDS PO SCH ×2 (09:11→20:35)
[2023-02-25 07:55] LABS: ABS Eosinophils 0.4 10^3/uL (0.0-0.5); ABS Lymphocytes 0.7 10^3/uL (1.0-4.8); ABS Monocytes 0.9 10^3/uL (0.0-0.9); ABS Neutrophils 5.3 10^3/uL (1.5-7.6); ABS Nucleated RBC 0.02 10^3/ul; Eosinophil % 6.1 %; Hematocrit 23.8 % (35-45); Hemoglobin 8.1 g/dL (11.5-14.3); Lymphocyte % 8.9 %; Mean Corpuscular Volume 96.9 fL (80-97); Mean Platelet Volume 6.5 fL (7.5-11.2); Nucleated Red Blood Cells % 0.3 /100 WBC (0.0-0.4); Platelet Count 222 10^3/uL (150-450); Red Blood Count 2.45 10^6/uL (3.63-4.92); Red Cell Distribution Width 14.9 % (12-17); White Blood Count 7.4 10^3/uL (3.8-11.8)
[2023-02-25 08:13] LABS: Calcium 8.4 mg/dL (8.6-10.3); Creatinine, Serum 3.89 mg/dL (0.51-0.95); eGFR CKD-EPI 11.2 (>60)
[2023-02-25] MEDS: Sodium Bicarb 650 mg (ANTACID) TAB PO SCH ×2 (09:28→20:20)
[2023-02-25] MEDS: Enoxaparin 30 MG/0.3 ML SYR SUBCUT SCH (09:28)
[2023-02-25] MEDS: AREDS PO SCH ×2 (09:37→20:28)
[2023-02-25] MEDS: [UNRECOGNIZED DRUG - OTHER] PO SCH ×2 (09:37→20:28)
[2023-02-25] MEDS: ceFAZolin 1 GM in Dextrose 1 GM/50 ML BAG IVPB SCH ×2 (11:55→20:16)
[2023-02-26] MEDS: ceFAZolin 1 GM in Dextrose 1 GM/50 ML BAG IVPB SCH ×3 (02:20→23:22)
[2023-02-26 06:47] LABS: ABS Eosinophils 0.6 10^3/uL (0.0-0.5); ABS Lymphocytes 0.6 10^3/uL (1.0-4.8); ABS Neutrophils 5.7 10^3/uL (1.5-7.6); ABS Nucleated RBC 0.01 10^3/ul; Eosinophil % 7.7 %; Hemoglobin 8.1 g/dL (11.5-14.3); Lymphocyte % 7.6 %; Mean Corpuscular Hemoglobin 33.2 pg (27-33); Mean Corpuscular Volume 97.6 fL (80-97); Mean Platelet Volume 6.3 fL (7.5-11.2); Nucleated Red Blood Cells % 0.1 /100 WBC (0.0-0.4); Platelet Count 263 10^3/uL (150-450); Red Blood Count 2.45 10^6/uL (3.63-4.92); White Blood Count 7.9 10^3/uL (3.8-11.8)
[2023-02-26 07:05] LABS: Calcium 8.4 mg/dL (8.6-10.3); Creatinine, Serum 3.65 mg/dL (0.51-0.95); Potassium 4.9 mmol/L (3.5-5.0)
[2023-02-26] MEDS: [UNRECOGNIZED DRUG - OTHER] PO SCH ×2 (07:30→21:19)
[2023-02-26] MEDS: Sodium Bicarb 650 mg (ANTACID) TAB PO SCH ×2 (07:30→21:19)
[2023-02-26] MEDS: AREDS PO SCH ×2 (07:30→21:19)
[2023-02-26] MEDS: Enoxaparin 30 MG/0.3 ML SYR SUBCUT SCH (13:27)
[2023-02-27 07:25] LABS: Calcium 8.6 mg/dL (8.6-10.3); Creatinine, Serum 3.5 mg/dL (0.51-0.95); Potassium 4.7 mmol/L (3.5-5.0); eGFR CKD-EPI 12.7 (>60)
[2023-02-27] MEDS: [UNRECOGNIZED DRUG - OTHER] PO SCH (09:05)
[2023-02-27] MEDS: AREDS PO SCH (09:05)
[2023-02-27] MEDS: Sodium Bicarb 650 mg (ANTACID) TAB PO SCH (09:07)
[2023-02-27] MEDS: ceFAZolin 1 GM in Dextrose 1 GM/50 ML BAG IVPB SCH (11:22)
[2023-02-27 13:46] VITALS: BP 151/72
[2023-02-27] MEDS: Enoxaparin 30 MG/0.3 ML SYR SUBCUT SCH (14:31)
== END 2023-02-27 14:50 | disposition home or self-care (01) | DRG 481 ==
LOC: ED 12:04 → SUATTDRO 16:09 → EDHOLD 16:09 → SSU 19:22
PROVIDERS: ADMIT Family Medicine; ATTEND Internal Medicine

== ENCOUNTER 2023-04-14 15:20 | Observation (INO) ==
[2023-04-14 16:03] LABS: ABS Eosinophils 0.2 10^3/uL (0.0-0.5); ABS Lymphocytes 0.5 10^3/uL (1.0-4.8); ABS Monocytes 0.5 10^3/uL (0.0-0.9); ABS Neutrophils 4.5 10^3/uL (1.5-7.6); Eosinophil % 2.7 %; Hematocrit 33.1 % (35-45); Hemoglobin 11.2 g/dL (11.5-14.3); Lymphocyte % 8.6 %; Mean Corpuscular Hemoglobin 32.6 pg (27-33); Mean Corpuscular Hgb Conc 33.8 g/dL (31-36); Mean Corpuscular Volume 96.6 fL (80-97); Mean Platelet Volume 6.7 fL (7.5-11.2); Platelet Count 233 10^3/uL (150-450); Red Blood Count 3.43 10^6/uL (3.63-4.92); Red Cell Distribution Width 14.4 % (12-17); White Blood Count 5.7 10^3/uL (3.8-11.8)
[2023-04-14 16:09] LABS: Albumin 4.3 g/dL (3.2-5.2); Calcium 9.8 mg/dL (8.6-10.3); Magnesium 2.6 mg/dL (1.9-2.7); Potassium 4.6 mmol/L (3.5-5.0); Total Bilirubin 0.6 mg/dL (0.2-1.0)
[2023-04-14 16:15] LABS: Albumin/Globulin Ratio 1.4 (1-3); C Reactive Protein 5.17 mg/L (<8.01); Globulin 3.1 g/dL (2-4); Phosphorus 4.8 mg/dL (2.5-5.0); Total Protein 7.4 g/dL (6.4-8.9); eGFR CKD-EPI 10.8 (>60)
[2023-04-14 16:41] LABS: INR 0.95 (0.83-1.13)
[2023-04-14 16:53] LABS: Urine Appearance Clear; Urine Bilirubin Negative (Negative); Urine Blood Negative (Negative); Urine Color Straw; Urine Glucose Negative (Negative); Urine Ketones Negative (Negative); Urine Nitrite Negative (Negative); Urine Protein 1+(30 mg/dL) (Negative); Urine Specific Gravity 1.004 (1.002-1.030); Urine Urobilinogen Negative (Negative)
[2023-04-14 17:01] LABS: Urine Bacteria Absent (Absent); Urine Red Blood Cell Trace(0-2/hpf) (Absent); Urine Squamous Epithelial Cell Present (Absent); Urine White Blood Cell Trace(0-5/hpf) (Absent)
[2023-04-14 17:29] LABS: High Sensitivity Troponin 1 Hr 13 pg/mL (<15)
[2023-04-14] MEDS ORDERED: Furosemide 40 mg/4 ml IV VIAL IV SLOW PU ONE (17:40)
[2023-04-14] MEDS ORDERED: Polyethylene Glycol 3350 17 GM PACKET PO PRN (17:48)
[2023-04-14] MEDS ORDERED: Senna TAB 8.6 mg TAB PO PRN (18:03)
[2023-04-14] MEDS: Sodium Bicarb 650 mg (ANTACID) TAB PO SCH (20:40)
[2023-04-14] MEDS: Heparin 5000 UNITS/ML 1 mL VIAL SUBCUT SCH (21:35)
[2023-04-15 07:10] LABS: Calcium 9.5 mg/dL (8.6-10.3); Creatinine, Serum 4.19 mg/dL (0.51-0.95); Potassium 4.3 mmol/L (3.5-5.0); eGFR CKD-EPI 10.2 (>60)
[2023-04-15] MEDS: Heparin 5000 UNITS/ML 1 mL VIAL SUBCUT SCH (08:15)
[2023-04-15] MEDS: Sodium Bicarb 650 mg (ANTACID) TAB PO SCH (08:17)
[2023-04-15] MEDS ORDERED: Cholecalciferol (VIT D3) 1,000 unit TAB PO SCH (09:00)
[2023-04-15] MEDS ORDERED: Furosemide 40 mg/4 ml IV VIAL IV SLOW PU SCH (10:00)
[2023-04-15 12:54] VITALS: BP 135/70
== END 2023-04-15 12:54 | disposition home or self-care (01) ==
LOC: EDHOLD 15:20 → ED 15:20 → EDHOLD 04-15 12:53
PROVIDERS: ADMIT Internal Medicine; ATTEND Internal Medicine

== ENCOUNTER 2024-01-20 04:47 | Observation (INO) ==
[2024-01-20 05:28] LABS: ABS Eosinophils 0.2 10^3/uL (0.0-0.5); ABS Lymphocytes 0.6 10^3/uL (1.0-4.8); ABS Monocytes 0.6 10^3/uL (0.0-0.9); ABS Neutrophils 4.4 10^3/uL (1.5-7.6); Eosinophil % 3.6 %; Hematocrit 30.8 % (35-45); Hemoglobin 10.3 g/dL (11.5-14.3); Lymphocyte % 10.4 %; Mean Corpuscular Hemoglobin 32.5 pg (27-33); Mean Corpuscular Hgb Conc 33.3 g/dL (31-36); Mean Corpuscular Volume 97.5 fL (80-97); Mean Platelet Volume 6.7 fL (7.5-11.2); Nucleated Red Blood Cells % 0.1 %/100WBC (0.0-0.8); Platelet Count 195 10^3/uL (150-450); Red Blood Count 3.16 10^6/uL (3.63-4.92); White Blood Count 5.9 10^3/uL (3.8-11.8)
[2024-01-20 05:37] LABS: High Sens Troponin Baseline 9 pg/mL (<15)
[2024-01-20 06:19] LABS: ALT 7 U/L (7-52); Albumin 3.4 g/dL (3.2-5.2); Albumin/Globulin Ratio 1.2 (1-3); Alkaline Phosphatase 60 U/L (35-149); Anion Gap 11 mmol/L (2-16); Blood Urea Nitrogen 51 mg/dL (6-24); CO2 Carbon Dioxide 28 mmol/L (22-32); Chloride 100 mmol/L (101-111); Creatinine, Serum 4.05 mg/dL (0.51-0.95); Globulin 2.9 g/dL (2-4); Glucose 100 mg/dL (70-100); Lipase 14 U/L (11.0-82.0); Sodium 139 mmol/L (135-145); Total Bilirubin 0.9 mg/dL (0.2-1.0); Total Protein 6.3 g/dL (6.4-8.9); eGFR CKD-EPI 10.6 (>60)
[2024-01-20 06:35] LABS: High Sensitivity Troponin 1 Hr 10 pg/mL (<15)
[2024-01-20 10:30] LABS: Potassium, Whole Blood 4.2 mmol/L (3.4-4.5)
[2024-01-20 11:14] LABS: AST Redraw 9 U/L (13-39)
[2024-01-20] MEDS ORDERED: Sulfur Hexaflouride MICROSPHR 25 MG VIAL ONE (13:30)
[2024-01-20] MEDS: Sulfur Hexaflouride MICROSPHR 25 MG VIAL IV ONE (13:31)
[2024-01-20] MEDS: Potassium Chlor 10 meq TAB PO SCH (13:51)
[2024-01-20] MEDS: Sodium Bicarb 650 mg (ANTACID) TAB PO SCH (13:52)
[2024-01-20 16:29] LABS: Ferritin 48.1 ng/mL (11-307)
[2024-01-20 16:32] LABS: Folate 10.24 ng/mL (5.90-24.80)
[2024-01-20 16:33] LABS: Vitamin B12 337 pg/mL (180-914)
[2024-01-20 17:29] LABS: % Iron Saturation 16 % (15-55); .Transferrin 254 mg/dL (203-362); Iron 56 ug/dL (50-212); Total Iron Binding Capacity 356 mcg/dL (250-450); Unsaturated Iron Binding 300 ug/dL
[2024-01-20] MEDS: Heparin 5000 UNITS/ML 1 mL VIAL SUBCUT SCH (20:34)
[2024-01-21 06:14] LABS: ABS Eosinophils 0.3 10^3/uL (0.0-0.5); ABS Lymphocytes 0.6 10^3/uL (1.0-4.8); ABS Monocytes 0.7 10^3/uL (0.0-0.9); ABS Neutrophils 4.6 10^3/uL (1.5-7.6); Eosinophil % 4.9 %; Hematocrit 32.7 % (35-45); Hemoglobin 10.7 g/dL (11.5-14.3); Lymphocyte % 9.1 %; Mean Corpuscular Hemoglobin 31.8 pg (27-33); Mean Corpuscular Hgb Conc 32.7 g/dL (31-36); Mean Corpuscular Volume 97.3 fL (80-97); Mean Platelet Volume 6.7 fL (7.5-11.2); Platelet Count 209 10^3/uL (150-450); Red Blood Count 3.36 10^6/uL (3.63-4.92); Red Cell Distribution Width 15.1 % (12-17); White Blood Count 6.1 10^3/uL (3.8-11.8)
[2024-01-21 06:53] LABS: Calcium 9.8 mg/dL (8.6-10.3); Creatinine, Serum 4.21 mg/dL (0.51-0.95); Magnesium 2.2 mg/dL (1.9-2.7); Phosphorus 3.6 mg/dL (2.5-5.0); eGFR CKD-EPI 10.1 (>60)
[2024-01-21] MEDS ORDERED: Aminophylline 25 MG/ML VIAL ONE (07:58)
[2024-01-21] MEDS ORDERED: Regadenoson 0.4 MG/5 ML SYRINGE ONE (07:59)
[2024-01-21] MEDS ORDERED: Ferric Gluconate IV 250 MG in NS 0.9% 250 ml 200 ML IVPB SCH (16:00)
[2024-01-21 17:02] VITALS: BP 100/54
== END 2024-01-21 17:30 | disposition home or self-care (01) ==
LOC: ED 04:47 → EDHOLD 04:47 → MEDTELE 15:48
PROVIDERS: ADMIT Hospitalist; ATTEND Hospitalist